=== PATIENT | female | born 1955 | race Caucasian/White ===

== ENCOUNTER 2020-11-07 11:37 | Emergency (ER) | payer OTHER, MEDICAID ==
[~2020-11-07] VITALS: Ht 157.5 cm; Wt 104.3 kg
[2020-11-07] MEDS ORDERED: ACETAMINOPHEN 500 MG TAB PO ONE (13:15)
[2020-11-07 14:30] LABS: Basophils # (auto) 0.1 10 ^3/uL (0-0.2); Basophils % (auto) 0.9 % (0.0-2.0); Eosinophils # (auto) 0 10 ^3/uL (0-0.8); Hematocrit 42.2 % (36.0-46.0); Lymphocytes # (auto) 0.6 10 ^3/uL (0.4-5.4); Lymphocytes % (auto) 6.3 % (10.0-50.0); Mean Corpuscular Hemoglobin 28.3 pg (28.0-32.0); Mean Corpuscular Hgb Conc. 33.1 g/dL (32.0-36.0); Mean Corpuscular Volume 85.5 fL (80.0-100.0); Monocytes # (auto) 0.5 10 ^3/uL (0-1.3); Monocytes % (auto) 5.7 % (0.0-12.0); Neutrophils % (auto) 87.1 % (37.0-80.0); Platelet Count (auto) 196 10^3/uL (140-450); Red Blood Cells 4.94 10^6/uL (4.0-5.20); Red Cell Distribution Width 14.1 % (11.8-14.3); White Blood Cell 9.2 10^3/uL (4.4-10.8)
[2020-11-07] MEDS ORDERED: SODIUM CHLORIDE 0.9% 1,000 ML IV ONE (14:30)
[2020-11-07] MEDS ORDERED: cefTRIAXone 1GM/50ML D5W 50 ML IV ONE (14:30)
[2020-11-07 15:39] LABS: Calcium 8.5 mg/dL (8.5-10.1); Potassium 3.6 mmol/L (3.5-5.1)
[2020-11-07 15:44] LABS: Albumin 3.1 g/dL (3.4-5.0); Bilirubin, Total 0.6 mg/dL (0.2-1.0); Total Protein 7.5 g/dL (6.4-8.2)
[2020-11-07 16:39] LABS: Urine Bacteria NONE SEEN /hpf (None Seen); Urine Blood TRACE /uL (Negative); Urine Mucus FEW (None Seen); Urine Specific Gravity 1.027 (1.001-1.035); Urine WBC 127 /hpf (0 - 5)
[2020-11-07 17:01] VITALS: BP 127/43
== END 2020-11-07 17:39 | disposition home or self-care (01) ==
LOC: EDBD 11:37 → ER 11:37 → EDUNIT# 11:37 → ER 17:01
DX: S93.402A Sprain of unspecified ligament of left ankle, initial encounter (principal); M17.12 Unilateral primary osteoarthritis, left knee; Z20.828 Contact with and (suspected) exposure to other viral communicable diseases; X58.XXXA Exposure to other specified factors, initial encounter; Y93.89 Activity, other specified; Y92.89 Other specified places as the place of occurrence of the external cause; Y99.8 Other external cause status
CPT/HCPCS: 36415; 71045; 73562; 73610; 80053; 81001; 85025; 87426; 96361; 96365; 99284; C9803; J0696; J7030; U0003

== ENCOUNTER 2021-09-10 12:11 | Emergency (ER) | payer OTHER, MEDICAID ==
[~2021-09-10] VITALS: Ht 157.5 cm; Wt 95.3 kg
[2021-09-10] MEDS ORDERED: SODIUM CHLORIDE 0.9% 1,000 ML IV ONE (12:15)
[2021-09-10 17:01] LABS: Basophils # (auto) 0.1 10 ^3/uL (0-0.2); Basophils % (auto) 0.5 % (0.0-2.0); Eosinophils # (auto) 0.1 10 ^3/uL (0-0.8); Eosinophils % (auto) 0.6 % (0.0-7.0); Hemoglobin 14.5 g/dL (12.2-16.2); Lymphocytes # (auto) 2.2 10 ^3/uL (0.4-5.4); Lymphocytes % (auto) 13.2 % (10.0-50.0); Mean Corpuscular Hemoglobin 29.2 pg (28.0-32.0); Mean Corpuscular Hgb Conc. 32.9 g/dL (32.0-36.0); Mean Corpuscular Volume 88.7 fL (80.0-100.0); Monocytes # (auto) 0.8 10 ^3/uL (0-1.3); Monocytes % (auto) 4.5 % (0.0-12.0); Neutrophils # (auto) 13.8 10 ^3/uL (1.6-8.6); Neutrophils % (auto) 81.2 % (37.0-80.0); Nucleated Red Blood Cells % 0.2 %; Red Blood Cells 4.96 10^6/uL (4.0-5.20); Red Cell Distribution Width 13.7 % (11.8-14.3); White Blood Cell 16.9 10^3/uL (4.4-10.8)
[2021-09-10 17:16] LABS: Albumin 3.3 g/dL (3.4-5.0); Potassium 4.1 mmol/L (3.5-5.1)
[2021-09-10 17:21] LABS: Bilirubin, Total 0.8 mg/dL (0.2-1.0); Total Protein 7.3 g/dL (6.4-8.2)
[2021-09-10 21:40] VITALS: BP 126/57
== END 2021-09-10 22:09 | disposition home or self-care (01) ==
LOC: ER 12:11 → EDBD 12:11 → ER 22:09
DX: E11.649 Type 2 diabetes mellitus with hypoglycemia without coma (principal); I10 Essential (primary) hypertension
CPT/HCPCS: 36415; 70450; 71045; 80053; 83880; 84484; 85025; 93005